=== PATIENT | female | born 2000 | race Caucasian/White ===

== ENCOUNTER 2019-07-06 20:21 | Observation (INO) | payer MEDICAID ==
[~2019-07-06] VITALS: Ht 157.5 cm; Wt 59.0 kg
[2019-07-06 20:54] VITALS: BP_SYST 109
--- NOTE | 2019-07-06 21:03 | NUR ---
Pt placed to ER waiting room in stable condition. Urine specimen cup provided.
--- NOTE | 2019-07-06 21:16 | NUR ---
Pt to lab.
--- NOTE | 2019-07-06 21:25 | NUR ---
Pt returns to ER waiting room from lab.
[2019-07-06 22:09] LABS: BASOPHILS % (AUTO) 0.5 % (0.0-2.0); EOSINOPHILS # (AUTO) 0.1 K/uL (0.0-0.4); EOSINOPHILS % (AUTO) 1.4 % (0.0-4.0); HEMATOCRIT 42.4 % (36-48); HEMOGLOBIN 14.2 g/dL (12.0-16.0); LYMPHOCYTES # (AUTO) 1.7 K/uL (1.0-5.5); LYMPHOCYTES % (AUTO) 22.2 % (20.5-51.5); MEAN CORPUSCULAR HEMOGLOBIN 30 pg (27-31); MEAN CORPUSCULAR HGB CONC 34 % (32-36); MEAN CORPUSCULAR VOLUME 90 fL (79.0-98.0); MONOCYTES # (AUTO) 0.5 K/uL (0.0-1.0); MONOCYTES % (AUTO) 7.1 % (1.7-9.3); NEUTROPHILS # (AUTO) 5.2 K/uL (1.8-7.7); NEUTROPHILS % (AUTO) 68.8 % (40.0-70.0); PLATELET COUNT (AUTO) 321 K/uL (130-430); WHITE BLOOD COUNT (AUTO) 7.5 K/uL (4.5-11.0)
--- NOTE | 2019-07-06 22:47 | NUR ---
Ambulatory to ultra sound accompanied by tech
[2019-07-06 22:53] LABS: BILIRUBIN,URINE NEGATIVE (NEGATIVE); CLARITY/URINE CLEAR (CLEAR); COLOR,URINE YELLOW (YELLOW); GLUCOSE,URINE NEGATIVE (NEGATIVE); KETONES,URINE NEGATIVE (NEGATIVE); LEUKOCYTE ESTERASE ,URINE NEGATIVE (NEGATIVE); NITRITE, URINE NEGATIVE (NEGATIVE); PH,URINE 5.5 (5.0-8.0); PROTEIN URINE NEGATIVE (NEGATIVE); UROBILINOGEN,URINE 0.2 (0.2-1.0)
[2019-07-06 23:03] LABS: BLOOD, URINE TRACE (NEGATIVE)
[2019-07-06 23:06] LABS: HCG,QUAL RESULT POSITIVE (NEGATIVE)
[2019-07-06 23:26] LABS: BACTERIA,URINE FEW /HPF (None Seen); WBC,URINE 0-3 /HPF (0-3)
--- NOTE | 2019-07-06 23:50 | NUR ---
PT to bed 4 via wheelchair.
--- NOTE | 2019-07-06 23:50 | NUR ---
Pt c/o spotting past few days but needed a pad today. LMP Mar 2019. Was seen at [facility] on saturday and was told that they there was no heartbeat and to follow up with OBGYN. Pt is having intermittent cramping, lower abd pain severe. Hx 2 miscarriages prior to 8 weeks. G3, P0
--- NOTE | 2019-07-07 00:23 | NUR ---
Pt having intermittent cramping and abd pain. ER MD aware. Awaiting MSE
--- NOTE | 2019-07-07 00:32 | NUR ---
ER Dr. Mcginnis at bedside examining patient.
[2019-07-07] MEDS ORDERED: NACL 0.9% 1,000 ML IV ONE ×2 (00:37→03:30)
[2019-07-07] MEDS ORDERED: MORPHINE 4 MG/ML INJ. SYRINGE IVP ONE ×2 (00:45→02:15)
[2019-07-07] MEDS ORDERED: DIPHENHYDRAMINE INJ 50 MG/ML VIAL IVP ONE ×2 (00:45→02:15)
--- NOTE | 2019-07-07 00:50 | NUR ---
Medicated per MD orders. IVF infusing with no s/s of infiltration at this time. Will cont to monitor. Fiance at bedside. Bed in lowest position, side rail up.
[2019-07-07] MEDS ORDERED: MORPHINE 2 MG/ML INJ. SYRINGE ONE ×2 (00:57→02:31)
--- NOTE | 2019-07-07 01:15 | NUR ---
Report given to DILMA Magana
--- NOTE | 2019-07-07 01:44 | NUR ---
Pelvic exam performed by Dr. Mcginnis with DILMA Magana at bedside for entire examination. Patient tolerated procedure well. Patient assisted to position of comfort after examination. Products of conception sent to lab.
[2019-07-07] MEDS ORDERED: KETOROLAC TROMETHAMINE 30 MG VIAL IVP ONE (01:45)
--- NOTE | 2019-07-07 02:00 | NUR ---
Assisted pt to bedside comode. Pt tolerated well.
--- NOTE | 2019-07-07 02:14 | NUR ---
Pt passed fetus. Fetus collected and sent to lab.
--- NOTE | 2019-07-07 02:20 | NUR ---
Pt medicated per MD orders. Pt tolerated well.
--- NOTE | 2019-07-07 03:20 | NUR ---
Pt blood pressure drop to 50/40. MD Mcginnis at bedside. Verbal orders to begin bolus. Pt tolerated well. Will continue to monitor.
--- NOTE | 2019-07-07 03:48 | NUR ---
LAB AT BEDSIDE
[2019-07-07 04:07] LABS: BASOPHILS % (AUTO) 0.4 % (0.0-2.0); EOSINOPHILS # (AUTO) 0.1 K/uL (0.0-0.4); HEMATOCRIT 32.5 % (36-48); HEMOGLOBIN 10.9 g/dL (12.0-16.0); LYMPHOCYTES # (AUTO) 1.9 K/uL (1.0-5.5); LYMPHOCYTES % (AUTO) 23.6 % (20.5-51.5); MEAN CORPUSCULAR HEMOGLOBIN 30 pg (27-31); MEAN CORPUSCULAR HGB CONC 34 % (32-36); MEAN CORPUSCULAR VOLUME 90 fL (79.0-98.0); MONOCYTES # (AUTO) 0.4 K/uL (0.0-1.0); MONOCYTES % (AUTO) 5.5 % (1.7-9.3); NEUTROPHILS # (AUTO) 5.5 K/uL (1.8-7.7); NEUTROPHILS % (AUTO) 69.5 % (40.0-70.0); PLATELET COUNT (AUTO) 250 K/uL (130-430); RED BLOOD CELL COUNT(AUTO) 3.61 MIL/uL (4.2-6.2); RED CELL DISTRIBUTION WIDTH 12.7 % (9.0-15.0); WHITE BLOOD COUNT (AUTO) 7.9 K/uL (4.5-11.0)
--- NOTE | 2019-07-07 04:08 | NUR ---
Patient will be admitted to care of MD LAWS. Admitted to OB unit. Awaiting bed placement. Belongings list completed. Complete and up to date summary report printed. SBAR report to be given at bedside with opportunity for questions.
[2019-07-07] MEDS ORDERED: OXYTOCIN 30 UNIT in LR 1,000 ML IV ONE (04:15)
[2019-07-07] MEDS ORDERED: OXYTOCIN 10 UNIT/ML VIAL ONE (04:47)
--- NOTE | 2019-07-07 05:00 | NUR ---
Transfer to OB. IV present with 30 units pitocin in 1000 LR running at 125 ml/hr with no sign or symptom of infiltration.
[2019-07-07 07:23] LABS: BASOPHILS % (AUTO) 0.6 % (0.0-2.0); EOSINOPHILS # (AUTO) 0.1 K/uL (0.0-0.4); EOSINOPHILS % (AUTO) 0.8 % (0.0-4.0); HEMATOCRIT 28.8 % (36-48); HEMOGLOBIN 9.9 g/dL (12.0-16.0); LYMPHOCYTES # (AUTO) 1.4 K/uL (1.0-5.5); LYMPHOCYTES % (AUTO) 19.3 % (20.5-51.5); MEAN CORPUSCULAR HEMOGLOBIN 31 pg (27-31); MEAN CORPUSCULAR HGB CONC 34 % (32-36); MEAN CORPUSCULAR VOLUME 89 fL (79.0-98.0); MONOCYTES # (AUTO) 0.4 K/uL (0.0-1.0); MONOCYTES % (AUTO) 4.9 % (1.7-9.3); NEUTROPHILS # (AUTO) 5.3 K/uL (1.8-7.7); NEUTROPHILS % (AUTO) 74.4 % (40.0-70.0); PLATELET COUNT (AUTO) 245 K/uL (130-430); RED BLOOD CELL COUNT(AUTO) 3.22 MIL/uL (4.2-6.2); RED CELL DISTRIBUTION WIDTH 13.2 % (9.0-15.0); WHITE BLOOD COUNT (AUTO) 7.2 K/uL (4.5-11.0)
[2019-07-07 12:00] LABS: BASOPHILS % (AUTO) 0.6 % (0.0-2.0); EOSINOPHILS # (AUTO) 0.1 K/uL (0.0-0.4); EOSINOPHILS % (AUTO) 1.7 % (0.0-4.0); HEMATOCRIT 31.6 % (36-48); HEMOGLOBIN 10.8 g/dL (12.0-16.0); LYMPHOCYTES # (AUTO) 1.3 K/uL (1.0-5.5); LYMPHOCYTES % (AUTO) 23.7 % (20.5-51.5); MEAN CORPUSCULAR HEMOGLOBIN 31 pg (27-31); MEAN CORPUSCULAR HGB CONC 34 % (32-36); MEAN CORPUSCULAR VOLUME 90 fL (79.0-98.0); MONOCYTES # (AUTO) 0.4 K/uL (0.0-1.0); MONOCYTES % (AUTO) 6.4 % (1.7-9.3); NEUTROPHILS # (AUTO) 3.8 K/uL (1.8-7.7); NEUTROPHILS % (AUTO) 67.6 % (40.0-70.0); PLATELET COUNT (AUTO) 222 K/uL (130-430); RED BLOOD CELL COUNT(AUTO) 3.52 MIL/uL (4.2-6.2); RED CELL DISTRIBUTION WIDTH 13.3 % (9.0-15.0); WHITE BLOOD COUNT (AUTO) 5.7 K/uL (4.5-11.0)
[2019-07-07] MEDS ORDERED: OXYTOCIN/0.9 % SODIUM CHLORIDE 1,000 ML IV ONE (12:45)
[2019-07-07] MEDS ORDERED: LR 1,000 ML IV.SOLN IV ONE (16:55)
[2019-07-07] MEDS ORDERED: NS IRRIG SOLN 1000 ML IR ONE (16:55)
[2019-07-07] MEDS ORDERED: CEFAZOLIN 1 GM IVPB PREMIX 50 ML IV ONE (16:55)
[2019-07-07] MEDS ORDERED: PROPOFOL 200MG/ 20ML VIAL (DIPRIVAN) IV ONE (16:55)
[2019-07-07] MEDS ORDERED: OXYTOCIN 10 UNIT/ML VIAL IV ONE (16:55)
[2019-07-07] MEDS ORDERED: MIDAZOLAM HCL 5 MG/5 ML VIAL IVP ONE (16:55)
[2019-07-07] MEDS ORDERED: SEVOFLURANE 15 MIN GAS INH ONE (16:55)
[2019-07-07 17:44] VITALS: BP_SYST 90
[2019-07-07] MEDS ORDERED: HYDROmorphone 1 MG INJ. 1 MG/ML AMPUL IVP PRN (17:45)
[2019-07-07] MEDS ORDERED: ONDANSETRON HCL 4 MG/2 ML VIAL IVP PRN ×2 (17:45→19:45)
[2019-07-07] MEDS ORDERED: IBUPROFEN 600 MG TABLET PO PRN (17:45)
[2019-07-07] MEDS ORDERED: HYDROcodone/ACETAMIN 5-325 MG TAB (NORCO/ VICODIN) PO PRN (17:45)
[2019-07-07] MEDS ORDERED: HYDROmorphone 1 MG INJ. 1 MG/ML AMPUL ONE (18:18)
[2019-07-07] MEDS: LR 1,000 ML IV SCH (22:00)
[2019-07-07] MEDS: CEFAZOLIN 1 GM IVPB PREMIX 50 ML IV SCH (23:57)
[2019-07-08] MEDS: HYDROcodone/ACETAMIN 5-325 MG TAB (NORCO/ VICODIN) PO PRN ×2 (00:01→05:56)
[2019-07-08] MEDS: CEFAZOLIN 1 GM IVPB PREMIX 50 ML IV SCH ×2 (05:56→12:23)
[2019-07-08] MEDS: LR 1,000 ML IV SCH (07:00)
[2019-07-08 07:49] LABS: BASOPHILS % (AUTO) 0.7 % (0.0-2.0); EOSINOPHILS # (AUTO) 0.2 K/uL (0.0-0.4); EOSINOPHILS % (AUTO) 5.6 % (0.0-4.0); HEMATOCRIT 29.3 % (36-48); HEMOGLOBIN 10.4 g/dL (12.0-16.0); LYMPHOCYTES # (AUTO) 1.5 K/uL (1.0-5.5); MEAN CORPUSCULAR HEMOGLOBIN 32 pg (27-31); MEAN CORPUSCULAR HGB CONC 35 % (32-36); MEAN CORPUSCULAR VOLUME 89 fL (79.0-98.0); MONOCYTES # (AUTO) 0.3 K/uL (0.0-1.0); NEUTROPHILS # (AUTO) 2.2 K/uL (1.8-7.7); NEUTROPHILS % (AUTO) 51.7 % (40.0-70.0); PLATELET COUNT (AUTO) 219 K/uL (130-430); RED BLOOD CELL COUNT(AUTO) 3.29 MIL/uL (4.2-6.2); RED CELL DISTRIBUTION WIDTH 13.4 % (9.0-15.0); WHITE BLOOD COUNT (AUTO) 4.3 K/uL (4.5-11.0)
[2019-07-08] MEDS ORDERED: IBUPROFEN 600 MG TABLET PO ONE (10:30)
[2019-07-08] MEDS ORDERED: IBUPROFEN 600 MG TABLET PO SCH (16:00)
== END 2019-07-08 16:45 | disposition home or self-care (01) ==
LOC: SED 20:21 → SPU 07-07 04:02
PROVIDERS: ADMIT Obstetrics & Gynecology; ATTEND Obstetrics & Gynecology
DX: O03.4 Incomplete spontaneous abortion without complication (principal); Z3A.12 12 weeks gestation of pregnancy
CPT/HCPCS: 36415 ×3; 36430; 59812; 76801 ×2; 76817 ×2; 81000; 84702; 84703; 85025 ×3; 86886; 86900; 86901 ×2; 86920; 88305; 96365; 96366 ×2; 96375; 96376; 99285; G0378; J0690 ×2; J1170; J1200; J1885; J2250; J2270; J2590 ×2; J2704; J7030 ×2; J7120 ×2; P9021; 96361; 96374; 99218

== ENCOUNTER 2019-12-10 20:01 | Emergency (ER) | payer MEDICAID ==
[~2019-12-10] VITALS: Ht 162.6 cm; Wt 61.2 kg
[2019-12-10 20:10] VITALS: BP_SYST 121
[2019-12-10 22:02] LABS: BASOPHILS # (AUTO) 0.1 K/uL (0.0-0.2); EOSINOPHILS # (AUTO) 0.1 K/uL (0.0-0.4); EOSINOPHILS % (AUTO) 1.8 % (0.0-4.0); HEMATOCRIT 41.4 % (36-48); LYMPHOCYTES % (AUTO) 32.4 % (20.5-51.5); MEAN CORPUSCULAR HEMOGLOBIN 30 pg (27-31); MEAN CORPUSCULAR HGB CONC 34 % (32-36); MEAN CORPUSCULAR VOLUME 88 fL (79.0-98.0); MONOCYTES # (AUTO) 0.4 K/uL (0.0-1.0); NEUTROPHILS # (AUTO) 3.7 K/uL (1.8-7.7); NEUTROPHILS % (AUTO) 58.8 % (40.0-70.0); PLATELET COUNT (AUTO) 413 K/uL (130-430); RED BLOOD CELL COUNT(AUTO) 4.68 MIL/uL (4.2-6.2); RED CELL DISTRIBUTION WIDTH 13.6 % (9.0-15.0); WHITE BLOOD COUNT (AUTO) 6.2 K/uL (4.5-11.0)
[2019-12-10 22:29] LABS: CALCIUM 9.7 mg/dL (8.4-11.0); CREATININE 0.62 mg/dL (0.55-1.30); POTASSIUM 3.7 mmol/L (3.5-5.1)
[2019-12-10 22:41] LABS: ALBUMIN 4.4 g/dL (3.4-4.8); TOTAL BILIRUBIN 0.2 mg/dL (0.0-1.0)
[2019-12-11] MEDS ORDERED: ACETAMINOPHEN 500 MG TABLET PO ONE
[2019-12-11 00:53] LABS: BILIRUBIN,URINE NEGATIVE (NEGATIVE); BLOOD, URINE 2+ (NEGATIVE); CLARITY/URINE CLEAR (CLEAR); COLOR,URINE YELLOW (YELLOW); GLUCOSE,URINE NEGATIVE (NEGATIVE); KETONES,URINE NEGATIVE (NEGATIVE); LEUKOCYTE ESTERASE ,URINE NEGATIVE (NEGATIVE); NITRITE, URINE NEGATIVE (NEGATIVE); PH,URINE 5.5 (5.0-8.0); PROTEIN URINE NEGATIVE (NEGATIVE); UROBILINOGEN,URINE 0.2 (0.2-1.0)
[2019-12-11 01:03] LABS: BACTERIA,URINE FEW /HPF (None Seen); WBC,URINE 0-3 /HPF (0-3)
[2019-12-11 01:45] VITALS: BP_SYST 118
== END 2019-12-11 01:45 | disposition home or self-care (01) ==
LOC: SED 20:01
DX: O03.9 Complete or unspecified spontaneous abortion without complication (principal); Z3A.01 Less than 8 weeks gestation of pregnancy
CPT/HCPCS: 36415; 76830-TC; 76856-TC; 76857; 80048; 80053; 81000-TC; 84702-TC; 85025; 86900; 86901; 99284

== ENCOUNTER 2019-12-13 19:33 | Emergency (ER) | payer MEDICAID ==
[~2019-12-13] VITALS: Ht 157.5 cm; Wt 63.5 kg
[2019-12-13 20:00] VITALS: BP_SYST 102
[2019-12-13 21:20] LABS: BASOPHILS # (AUTO) 0.1 K/uL (0.0-0.2); EOSINOPHILS # (AUTO) 0.1 K/uL (0.0-0.4); EOSINOPHILS % (AUTO) 2.1 % (0.0-4.0); HEMATOCRIT 42.5 % (36-48); HEMOGLOBIN 14.1 g/dL (12.0-16.0); LYMPHOCYTES # (AUTO) 1.8 K/uL (1.0-5.5); LYMPHOCYTES % (AUTO) 31.1 % (20.5-51.5); MEAN CORPUSCULAR HEMOGLOBIN 29 pg (27-31); MEAN CORPUSCULAR HGB CONC 33 % (32-36); MEAN CORPUSCULAR VOLUME 88 fL (79.0-98.0); MONOCYTES # (AUTO) 0.4 K/uL (0.0-1.0); MONOCYTES % (AUTO) 7.3 % (1.7-9.3); NEUTROPHILS # (AUTO) 3.3 K/uL (1.8-7.7); NEUTROPHILS % (AUTO) 58.5 % (40.0-70.0); PLATELET COUNT (AUTO) 412 K/uL (130-430); RED BLOOD CELL COUNT(AUTO) 4.81 MIL/uL (4.2-6.2); RED CELL DISTRIBUTION WIDTH 13.9 % (9.0-15.0); WHITE BLOOD COUNT (AUTO) 5.6 K/uL (4.5-11.0)
[2019-12-13 22:38] LABS: BILIRUBIN,URINE NEGATIVE (NEGATIVE); BLOOD, URINE 1+ (NEGATIVE); COLOR,URINE YELLOW (YELLOW); GLUCOSE,URINE NEGATIVE (NEGATIVE); KETONES,URINE NEGATIVE (NEGATIVE); LEUKOCYTE ESTERASE ,URINE TRACE (NEGATIVE); NITRITE, URINE NEGATIVE (NEGATIVE); PH,URINE 6.5 (5.0-8.0); PROTEIN URINE NEGATIVE (NEGATIVE); UROBILINOGEN,URINE 0.2 (0.2-1.0)
[2019-12-13 22:41] LABS: CLARITY/URINE HAZY (CLEAR)
[2019-12-13 22:49] LABS: BACTERIA,URINE MODERATE /HPF (None Seen); RBC,URINE 0-3 /HPF (0-3); WBC,URINE 0-3 /HPF (0-3)
[2019-12-13 22:50] LABS: MUCUS,URINE 1+ /LPF (None Seen)
[2019-12-13 23:07] VITALS: BP_SYST 132
== END 2019-12-13 23:07 | disposition home or self-care (01) ==
LOC: SED 19:33
DX: O03.9 Complete or unspecified spontaneous abortion without complication (principal)
CPT/HCPCS: 36415; 76830-TC; 76857; 81000-TC; 81025; 84702-TC; 85025; 87086; 99284

== ENCOUNTER 2023-08-09 20:54 | Emergency (ER) | payer MEDICAID ==
[~2023-08-09] VITALS: Ht 167.6 cm; Wt 68.0 kg
[2023-08-09 21:03] VITALS: BP_SYST 132; PULSE 114; RESP 20; TEMP 98; O2SAT 100
[2023-08-09 22:18] LABS: COVID19 ANTIGEN SOFIA FIA NEGATIVE (NEGATIVE)
[2023-08-09 22:20] LABS: INFLUENZA TYPE A Negative (NEGATIVE); INFLUENZA TYPE B NEGATIVE (NEGATIVE)
[2023-08-09 22:31] LABS: BASOPHILS # (AUTO) 0.1 K/uL (0.0-0.2); BASOPHILS % (AUTO) 0.5 % (0.0-2.0); EOSINOPHILS # (AUTO) 0.3 K/uL (0.0-0.4); EOSINOPHILS % (AUTO) 2.3 % (0.0-4.0); HEMATOCRIT 33.9 % (36-48); HEMOGLOBIN 11.8 g/dL (12.0-16.0); LYMPHOCYTES # (AUTO) 1.4 K/uL (1.0-5.5); LYMPHOCYTES % (AUTO) 12.8 % (20.5-51.5); MEAN CORPUSCULAR HEMOGLOBIN 31 pg (27-31); MEAN CORPUSCULAR HGB CONC 35 % (32-36); MEAN CORPUSCULAR VOLUME 89 fL (79.0-98.0); MONOCYTES # (AUTO) 0.8 K/uL (0.0-1.0); MONOCYTES % (AUTO) 6.8 % (1.7-9.3); NEUTROPHILS # (AUTO) 8.7 K/uL (1.8-7.7); NEUTROPHILS % (AUTO) 77.6 % (40.0-70.0); PLATELET COUNT (AUTO) 341 K/uL (130-430); RED BLOOD CELL COUNT(AUTO) 3.81 MIL/uL (4.2-6.2); RED CELL DISTRIBUTION WIDTH 13.2 % (9.0-15.0); WHITE BLOOD COUNT (AUTO) 11.2 K/uL (4.8-10.8)
[2023-08-09 22:42] LABS: INR 0.9 (0.8-1.2); PROTHROMBIN TIME 9.4 SECS (9.5-12.5)
[2023-08-09 22:45] LABS: CALCIUM 8.9 mg/dL (8.4-11.0); CREATININE 0.39 mg/dL (0.55-1.30); POTASSIUM 3.7 mmol/L (3.5-5.1)
[2023-08-09] MEDS ORDERED: CLINDAMYCIN 300 MG/50 ML D5W 50 ML IV ONE (22:45)
[2023-08-09] MEDS ORDERED: D5W IV ONE (22:53)
[2023-08-09] MEDS ORDERED: CLINDAMYCIN 600 MG/50 ML IV ONE (22:53)
[2023-08-09] MEDS ORDERED: ACET-2634 PO (23:42)
[2023-08-09] MEDS ORDERED: DOXY1TAB3 PO (23:46)
[2023-08-09] MEDS ORDERED: GUAI100S14 PO (23:47)
[2023-08-09] MEDS ORDERED: DIPH25CA83 PO (23:48)
[2023-08-10] VITALS: BP_SYST 126; PULSE 83; RESP 18; TEMP 97.7; O2SAT 99
== END 2023-08-09 23:57 | disposition home or self-care (01) ==
LOC: SED 20:54
DX: J20.9 Acute bronchitis, unspecified (principal); R05.9 Cough, unspecified; Z79.899 Other long term (current) drug therapy; Z20.822 Contact with and (suspected) exposure to COVID-19
CPT/HCPCS: 36415; 71045; 80048; 85025; 85610; 85730; 99284; J3490